=== PATIENT | female | born 1970 | race Caucasian/White ===

== ENCOUNTER → 2023-02-10 13:30 | Outpatient (CLI) | payer BC, SELFPAY | PROVIDERS: PCP Physician Assistant Medical; Referring Provider Physician Assistant Medical; Visit Provider Surgery | DX: K94.03 Colostomy malfunction (principal) | CPT/HCPCS: 99203; 99213 ==

== ENCOUNTER → 2023-02-24 10:58 | Outpatient (CLI) | payer BC, SELFPAY | PROVIDERS: PCP Physician Assistant Medical; Referring Provider Physician Assistant Medical; Visit Provider Nurse Practitioner Family | DX: Z93.3 Colostomy status (principal) | CPT/HCPCS: 99212 ==

== ENCOUNTER → 2023-12-15 09:29 | Outpatient (CLI) | payer BC, SELFPAY | LOC: WC 09:37 | PROVIDERS: PCP Physician Assistant Medical; Referring Provider Physician Assistant Medical; Visit Provider Surgery | DX: Z43.3 Encounter for attention to colostomy (principal) | CPT/HCPCS: 99212 ==